=== PATIENT | male | born 1975 ===

== ENCOUNTER 2016-10-23 05:56 | Inpatient (IN) | payer OTHER ==
[2016-10-23] VITALS (11 sets, daily range): BP systolic 102–125; BP diastolic 46–73
[~2016-10-23] VITALS: Ht 172.7 cm; Wt 79.4 kg
[~2016-10-23 05:56] MED LIST: IBUPROFEN800 M1 PO; MELOXICAM7.5 MG PO; ORPHENADRINE C100 MG PO; TRAMADOL-ACETA1 EACH ORAL; ULTRA-LIGHT RO1 EACH MC
[2016-10-23] MEDS ORDERED: NORCO 5-325 TA1 EACH ORAL (07:00)
[2016-10-23 07:29] LABS: BASOPHILS % (AUTO) 1.8 % (0.0-2.0); EOSINOPHILS % (AUTO) 4.3 % (0.0-3.0); LYMPHOCYTES % (AUTO) 44.4 % (20.0-45.0); MEAN CORPUSCULAR HEMOGLOBIN 33.5 PG (27.0-31.0); MEAN CORPUSCULAR HGB CONC 35.3 G/DL (32.0-36.0); MEAN CORPUSCULAR VOLUME 95 FL (80-99); MEAN PLATELET VOLUME 7.1 FL (6.5-10.1); MONOCYTES % (AUTO) 7.7 % (1.0-10.0); NEUTROPHILS % (AUTO) 41.9 % (45.0-75.0); PLATELET COUNT 240 K/UL (150-450); RED BLOOD COUNT 4.35 M/UL (4.70-6.10); WHITE BLOOD COUNT 4.8 K/UL (4.8-10.8)
[2016-10-23 07:35] LABS: PROTHROMBIN TIME 10.3 SEC (9.30-11.50)
[2016-10-23 07:36] LABS: ANION GAP 12 (5-15); CALCIUM 9.1 mg/dL (8.6-10.2); CARBON DIOXIDE 28 mEQ/L (20-30); CHLORIDE 100 mEQ/L (98-107); CREATININE 0.9 mg/dL (0.7-1.2); GLOMERULAR FILTRATION RATE > 60 mL/min (>60); HEMOLYSIS 4; POTASSIUM 3.9 mEQ/L (3.4-4.9); SODIUM 140 mEQ/L (135-145)
[2016-10-23] MEDS ORDERED: Thrombin 5000 units TOPIC ONE (07:43)
[2016-10-23] MEDS ORDERED: Thrombin 5000 units spray kit TOPIC ONE (07:43)
[2016-10-23] MEDS ORDERED: Bupivacaine w/Epi 0.5% 30ml Vial INJ ONE (07:43)
[2016-10-23] MEDS ORDERED: Gelfoam Absorbable 1gm powder pkt TOPIC ONE (07:44)
[2016-10-23] MEDS ORDERED: Bacitracin 50000 Units Vial ONE (07:44)
[2016-10-23] MEDS ORDERED: Neostigmine 1mg/ml 10ml Inj ONE (08:00)
[2016-10-23] MEDS ORDERED: Midazolam 2mg/2ml Inj ONE ×2 (08:00)
[2016-10-23] MEDS ORDERED: Dexamethasone 4mg/ml vial ONE (08:00)
[2016-10-23] MEDS ORDERED: Succinylcholine 20mg/ml 10ml vial ONE (08:00)
[2016-10-23] MEDS ORDERED: Glycopyrrolate 0.2mg/ml 1ml Vial ONE (08:00)
[2016-10-23] MEDS ORDERED: Zemuron 50mg/5ml Inj IV ONE (08:00)
[2016-10-23] MEDS ORDERED: NS Irrig 1000ml ONE (08:00)
[2016-10-23] MEDS ORDERED: Sterile Water Irrig 1000ml IRRIG ONE (08:00)
[2016-10-23] MEDS ORDERED: fentaNYL 250mcg/5ml ONE (08:00)
[2016-10-23] MEDS ORDERED: Ketorolac 30mg Inj ONE (08:00)
[2016-10-23] MEDS ORDERED: Propofol 10mg/ml 100ml btl IV ONE (08:00)
[2016-10-23] MEDS ORDERED: Heparin 5000 units/ml inj ONE (08:32)
[2016-10-23] MEDS ORDERED: LR 1000ml 1,000 ML IVLG SCH (10:02)
--- NOTE | 2016-10-23 10:02 | Anethesia Preoperative Eval ---
Anesthesia Pre-op PMH/ROS General Date of Evaluation: Oct 23, 2016 Time of Evaluation: 07:55 Anesthesiologist: Dio ASA Score: ASA 2 Mallampati Score Class I : Soft palate, uvula, fauces, pillars visible Class II: Soft palate, uvula, fauces visible Class III: Soft palate, base of uvula visible Class IV: Only hard plate visible Mallampati Classification: Class II Surgeon: Ernie Diagnosis: Lumbar radiculopathy Surgical Procedure: Revision of L4-5 L5-6 laminotomy with discectomy and decompression Anesthesia History: none Family History: no anesthesia problems Allergies: Coded Allergies: PENICILLINS (Verified Allergy, Unknown, 06/16/15) Past Medical History Cardiovascular: Denies: CAD, HTN, ME, arrhythmia, other, valve dz Pulmonary: Denies: COPD, FLOWER, asthma, other Gastrointestinal/Genitourinary: Reports: GERD - mild, Denies: CRI, ESRD, other Neurologic/Psychiatric: Reports: other - chronic back pain, Denies: CVA, TIA, dementia, depression/anxiety Endocrine: Denies: DM, hypothyroidism, other, steroids HEENT: Denies: SAMISH (L), SAMISH (R), cataract (L), cataract (R), glaucoma, other Hematology/Immune: Denies: DVT, anemia, bleeding disorder, other Musculoskeletal/Integumentary: Denies: DDD, DJD, OA, RA, edema, other PMH Narrative: as above PSxH Narrative: Lumbar laminotomy with decompression L shoulder Sx Anesthesia Pre-op Phys. Exam Physician Exam Last Vital Signs Date Time Temp Pulse Resp B/P Pulse Ox O2 Delivery O2 Flow Rate FiO2 10/23/16 06:54 97.6 60 18 110/73 100 Room Air Constitutional: NAD Neurologic: CN 2-12 intact Cardiovascular: RRR, no M/R/G Respiratory: CTA Gastrointestinal: S/NT/ND Airway Exam Mallampati Score: Class II MO: limited Neck: fexible ROM: limited Teeth: intact Dentures: no lower, no upper Anesthesia Pre-op A/P Labs Hematology Test 10/23/16 06:30 White Blood Count 4.8 K/UL (4.8-10.8) Red Blood Count 4.35 M/UL (4.70-6.10) L Hemoglobin 14.6 G/DL (14.2-18.0) Hematocrit 41.3 % (42.0-52.0) L Mean Corpuscular Volume 95 FL (80-99) Mean Corpuscular Hemoglobin 33.5 PG (27.0-31.0) H Mean Corpuscular Hemoglobin Concent 35.3 G/DL (32.0-36.0) Red Cell Distribution Width 10.0 % (11.6-14.8) L Platelet Count 240 K/UL (150-450) Mean Platelet Volume 7.1 FL (6.5-10.1) Neutrophils (%) (Auto) 41.9 % (45.0-75.0) L Lymphocytes (%) (Auto) 44.4 % (20.0-45.0) Monocytes (%) (Auto) 7.7 % (1.0-10.0) Eosinophils (%) (Auto) 4.3 % (0.0-3.0) H Basophils (%) (Auto) 1.8 % (0.0-2.0) Coagulation Test 10/23/16 06:30 Prothrombin Time 10.3 SEC (9.30-11.50) Prothromb Time International Ratio 1.0 (0.9-1.1) Activated Partial Thromboplast Time 28 SEC (23-33) Chemistry Test 10/23/16 06:30 Sodium Level 140 mEQ/L (135-145) Potassium Level 3.9 mEQ/L (3.4-4.9) Chloride Level 100 mEQ/L (98-107) Carbon Dioxide Level 28 mEQ/L (20-30) Anion Gap 12 (5-15) Blood Urea Nitrogen 11 mg/dL (7-23) Creatinine 0.9 mg/dL (0.7-1.2) Estimat Glomerular Filtration Rate > 60 mL/min (>60) Glucose Level 98 mg/dL (74-106) Calcium Level 9.1 mg/dL (8.6-10.2) Studies Pre-op Studies: EKG - NSR Risk Assessment & Plan Assessment: ASA 2 Plan: Ga with ETT prone position neuromonitoring. Status Change Before Surgery: No Pre-Antibiotics Drug: Ancef 2gr. Given Within 1 Hr of Incision: Yes Time Given: 08:50 SHARLENE ALFONSO M.D. Oct 23, 2016 10:02
[2016-10-23] MEDS ORDERED: Midazolam 2mg/2ml Inj IVP PRN (10:15)
[2016-10-23] MEDS ORDERED: Ketorolac 30mg Inj IV PRN (10:15)
[2016-10-23] MEDS ORDERED: DiphenhydrAMINE 50mg/ml Inj IVP PRN ×2 (10:15→10:30)
[2016-10-23] MEDS ORDERED: Metoclopramide 10mg/2ml Inj IVP PRN ×2 (10:15→12:30)
[2016-10-23] MEDS ORDERED: Hydromorphone 0.5mg/0.5ml inj IVP PRN (10:15)
[2016-10-23] MEDS ORDERED: Meperidine 25mg/ml Inj IV PRN (10:15)
[2016-10-23] MEDS ORDERED: Bacitracin 50000 Units Vial IRRIG ONE (11:18)
[2016-10-23] MEDS ORDERED: Acetaminophen 500mg (ES) tab ORAL ONE (11:45)
[2016-10-23] MEDS ORDERED: PCA HYDROmorphone 1mg/ml 30 ML IV PRN ×2 (12:00→22:45)
[2016-10-23] MEDS ORDERED: Acetaminophen (Non formulary) 100 ML IV ONE (12:00)
[2016-10-23] MEDS ORDERED: Naloxone 0.4mg/ml Inj IVP PRN (12:00)
[2016-10-23] MEDS ORDERED: Rate Change PCA 1 Each MISC PRN ×2 (12:00→15:00)
--- NOTE | 2016-10-23 12:20 | Pre-Procedure Note/Attestation ---
Pre-Procedure Note/Attestation Complete Prior to Procedure Procedure Narrative: L456 redo laminectomy/discectomy Indications for Procedure Pre-Operative Diagnosis: L45 HNP, L56 stenosis Attestation I attest that I discussed the nature of the procedure; its benefits; risks and complications; and alternatives (and the risks and benefits of such alternatives ), prior to the procedure, with the patient (or the patient's legal outside energy sales representatives). I attest that, if there was a reasonable possibility of needing a blood transfusion, the patient (or the patient's legal outside energy sales representatives) was given the [facility] standardized written summary, pursuant to the Dennys Rachel Blood Safety Act ([place] Health and Safety Code # 1645, as amended). I attest that I re-evaluated the patient just prior to the surgery and that there has been no change in the patient's H&P, except as documented below: TONYA SWANN Oct 23, 2016 12:20
--- NOTE | 2016-10-23 12:22 | Brief Operative Note ---
Immediate Post Operative Note Operative Note Pre-op Diagnosis: L45 HNP, L56 stenosis Procedure: L45 L discectomy, L56 redo laminectomy and decompression/neurolysis Surgeon: binu Director Of Restaurant Operations: ky ARNOLD Anesthesiologist: ivet Anesthesia: general Specimen: none Complications: none Condition: stable Estimated Blood Loss: minimal Drains: none Implant(s) used?: TONYA Pulido Oct 23, 2016 12:22
[2016-10-23] MEDS ORDERED: Milk of Magnesia 30ml Ud ORAL PRN (12:30)
--- NOTE | 2016-10-23 12:37 | Immediate Post-Op Evaluation ---
Immediate Post-Op Evalulation Immediate Post-Op Evalulation Procedure: Revision of L4-5 L5-6 laminotomy with decompression Date of Evaluation: Oct 23, 2016 Time of Evaluation: 12:36 IV Fluids: 1100 Blood Products: none Estimated Blood Loss: 50 Urinary Output: 150 Blood Pressure Systolic: 115 Blood Pressure Diastolic: 56 Pulse Rate: 84 Respiratory Rate: 20 O2 Sat by Pulse Oximetry: 99 Temperature (Fahrenheit): 97.7 Pain Score (1-10): 2 Nausea: No Vomiting: No Complications none Patient Status: reacts, patent, extubated, none Hydration Status: adequate SHARLENE ALFONSO M.D. Oct 23, 2016 12:37
[2016-10-23] MEDS ORDERED: LORazepam 1mg tab ORAL PRN (15:00)
[2016-10-23] MEDS: PCA shift volume MISC SCH ×2 (15:00→23:00)
[2016-10-23] MEDS ORDERED: Acetaminophen (Non formulary) 1,000 MG/100 ML ML IV SCH (17:00)
[2016-10-23] MEDS: ceFAZolin sod 1 GM in D5W 55 ML IV SCH (17:00)
[2016-10-23] MEDS: D5 1/2NS 1,000 ML IV SCH (17:00)
[2016-10-23] MEDS: Pericolace tab ORAL SCH (17:01)
[2016-10-23] MEDS ORDERED: Norco 10mg/325mg tab ORAL PRN (22:30)
[2016-10-23] MEDS ORDERED: HYDROmorphone 1mg/ml Carpuject SUBQ PRN (22:30)
--- NOTE | 2016-10-23 22:57 | Operative Note - Dictated ---
DATE OF OPERATION: 10/23/2016 PREOPERATIVE DIAGNOSES: 1. Lumbar disk herniation L4-L5, left side with left lower extremity radiculopathy. 2. L5-L6 stenosis with persistent radiculopathy. 3. Status post prior lumbar laminectomy and decompression. POSTOPERATIVE DIAGNOSES: 1. Lumbar disk herniation L4-L5, left side with left lower extremity radiculopathy. 2. L5-L6 stenosis with persistent radiculopathy. 3. Status post prior lumbar laminectomy and decompression. SURGEON: Roly Klein M.D. MANAGER PHYSICAL: Toni Fuller ANESTHESIA: General endotracheal anesthesia. ANESTHESIOLOGIST: Herb Wharton M.D. OPERATION PERFORMED: 1. Bilateral extraforaminal disk resection/diskectomy through a Pramod approach L4-L5. 2. Laminectomy redo L4-L5 and superior portion of L6. 3. Neurolysis. 4. Redo decompression with lysis of adhesions at the L5-L6 level. 5. Use of fluoroscopy. 6. Neurodiagnostic monitoring. 7. Need for use of operating microscope for neural decompression due to extensive and marked adhesion. RISK NOTE: The patient was explained in detail the risks and benefits of surgery to include, but not be limited to, those of bleeding, infection, damage to nerves, vessels, tendons, anesthetic risk, allergic reaction, aspiration, and possibly . The patient understood and wished to proceed. INDICATIONS: The patient is a very pleasant gentleman who previously underwent a lumbar decompression due to disk protrusion of his lower back. Postoperatively, the patient had persistence of radiculopathic findings primarily on the left side. Diagnostic selective nerve root block at L4-L5 was performed confirming improvement of the symptoms. MRI confirmed bilateral extraforaminal disk herniation at L4-L5. In addition at L5 and at L6, residual spinal stenosis was noted. The patient does have transitional segments, which for the purposes of this dictation will call the lowest most disks on the MRI as L6-S1. Despite prior surgical decompression, the patient had persistent radiculopathic findings and surgical recommendation was recommended. OPERATIVE PROCEDURE IN DETAIL: The patient was taken to the operative suite. After general endotracheal anesthesia was obtained, Muniz catheter was placed. He was turned prone onto a radiolucent table. All bony prominences were well padded. Under fluoroscopic guidance, the L4-L5 level was visualized. A 5 cm off of midline incision was marked out on the left side consistent with a traditional Pramod approach. The skin was infiltrated with Marcaine with epinephrine. The incision was carried down through the subcutaneous. The dorsal lumbar fascia was incised. Interval between the longissimus and multifidus muscles were delineated and the fascia was incised with Bovie. Blunt dissection was then carried out through the transverse processes of L4-L5. This was confirmed radiographically. At this point, self-retaining retractor was put in place. The interval along the intertransverse ligament was identified. Elevation of the intertransverse ligament of the superior portion of the L5 and inferior portion of L4 transverse processes was achieved. The intertransverse ligament was then peeled off from medial to lateral exposing the dorsal root ganglion and the nerve root. Care was taken to avoid undue manipulation of the dorsal root ganglion and minimal Bovie or bipolar was used in order to not be vascularized or injure the dorsal root ganglion. The nerve root, however, was gently retracted laterally and a disk protrusion was identified. Annulotomy was performed using a scalpel and straight pituitary was used to remove the disk fragments within the L4-L5 level, which had significantly become degenerated from his injury. At this point, an extruded fragment was identified and this was removed in a piecemeal fashion. Multiple passes with the pituitary as well as down-pushing curettes mobilized loose disk fragments, copious intradiscal irrigation was removed. The microscope was then removed. Copious irrigation was performed and please note that prior to removing the microscope, meticulous hemostasis was achieved. Decision was made to close this incision. A #1 Vicryl simple interrupted sutures through the muscle layer was achieved. Fascia was repaired using [id number] #1 Vicryl and subcutaneous closure using 2-0 Vicryl. This area was then packed off. Attention was turned to the midline. The prior incision was identified. Copious application of Marcaine 0.25% with epinephrine was injected into the prior scar. The scar was re-incised. Extensive scarring was noted on immediate inspection on the left side. Identification of the lamina of L4 was required, which then allowed for me to dissect down to the L5 lamina. The residual lamina was identified and with the use of a Bovie, the scar tissue was elevated off of the remnants of the lamina. Multiple imaging was obtained so as to confirm appropriate level at the L5-L6 level. At this point, using a high-speed drill under microscopic magnification, laminotomy of L5 and superior portion of L6 was achieved. The facet joints at L5-L6 was markedly inflamed with extensive amount of synovitis. The cephalad-most nature of the laminotomy at L5 was explored and using a curved curette, the normal tissue was encountered. The dura was gently retracted medially, which allowed for us to expose the lateral recess from L5 to superior portion of L6. L6 superior laminotomy was achieved. At this point, I was then able to gently retract the nerve root medially. Extensive epidural scar formation was encountered and a very significant neurolysis was achieved using meticulous microtechnique and very extensive laminotomy was achieved. At this time, the nerve roots was gently retracted medially. The neural foramen at L5-L6 was probed. The epidural neovascularization was also debulked and which allowed for additional decompression as the neovascularization was resulting in a mass effect. At this point, probing of the neural foramen demonstrated excellent access to the exiting nerve root. The traversing nerve root was also decompressed along the leading edge of the lamina of L6. Once I was satisfied with the decompression, meticulous hemostasis was achieved. Copious irrigation was performed. The fascia was repaired using #1 Vicryl and subcutaneous closure using 2-0 Vicryl. Dermabond was then applied to both incisions and a sterile dressing was applied. The patient was then turned onto his back, awakened, and transferred to recovery room in stable condition. Roly Klein M.D. DR: VESTA JOB#: [id number] CC:
[2016-10-23] MEDS ORDERED: Tamsulosin 0.4mg cap ORAL SCH (23:00)
[2016-10-24] MEDS: ceFAZolin sod 1 GM in D5W 55 ML IV SCH ×2 (00:03→07:56)
[2016-10-24 00:09] VITALS: BP 115/67
[2016-10-24] MEDS ORDERED: PCA HYDROmorphone 1mg/ml 30 ML IV PRN ×2 (00:15→12:00)
[2016-10-24] MEDS: D5 1/2NS 1,000 ML IV SCH ×2 (02:00→12:00)
[2016-10-24 04:00] VITALS: BP 114/53
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
[2016-10-24 07:22] LABS: BASOPHILS % (AUTO) 0.3 % (0.0-2.0); EOSINOPHILS % (AUTO) 0.1 % (0.0-3.0); LYMPHOCYTES % (AUTO) 7.8 % (20.0-45.0); MEAN CORPUSCULAR HEMOGLOBIN 33.4 PG (27.0-31.0); MEAN CORPUSCULAR HGB CONC 35.4 G/DL (32.0-36.0); MEAN CORPUSCULAR VOLUME 94 FL (80-99); MEAN PLATELET VOLUME 7.3 FL (6.5-10.1); MONOCYTES % (AUTO) 8.7 % (1.0-10.0); NEUTROPHILS % (AUTO) 83.1 % (45.0-75.0); PLATELET COUNT 222 K/UL (150-450); RED BLOOD COUNT 3.83 M/UL (4.70-6.10); RED CELL DISTRIBUTION WIDTH 10.1 % (11.6-14.8); WHITE BLOOD COUNT 14.3 K/UL (4.8-10.8)
[2016-10-24 08:00] VITALS: BP_SYST 106; BP_SYST 134; BP_DIAS 61; BP_DIAS 86
[2016-10-24] MEDS ORDERED: Zemuron 50mg/5ml Inj IV ONE (08:00)
[2016-10-24] MEDS ORDERED: Dexamethasone 4mg/ml vial ONE (08:00)
[2016-10-24] MEDS ORDERED: Midazolam 2mg/2ml Inj ONE ×2 (08:00)
[2016-10-24] MEDS ORDERED: fentaNYL 250mcg/5ml ONE (08:00)
[2016-10-24] MEDS ORDERED: Propofol 10mg/ml 100ml btl IV ONE (08:00)
[2016-10-24] MEDS ORDERED: LR 1000ml ONE (08:00)
[2016-10-24] MEDS ORDERED: Ketorolac 30mg Inj ONE ×2 (08:00)
[2016-10-24] MEDS: Pericolace tab ORAL SCH (08:43)
--- NOTE | 2016-10-24 10:22 | Diagnostic Imaging Report ---
Indication: PAIN, intraoperative Technique: Digital intraoperative images Comparison: None Findings: Digital intraoperative images demonstrate initially a surgical tool posterior to the L4 vertebral body. Subsequent images demonstrate surgical tool posterior to the L4-5 disc. Impression: Intraoperative images for localization, as described
[2016-10-24 12:07] VITALS: BP 107/55
--- NOTE | 2016-10-24 13:01 | Orthopedic Spine Progress Note ---
Ortho Spine - Progress Note Subjective Symptoms: c/o post-op back pain, improved - as compared to pre-op Objective Vital Signs: Last 24 Hour Vital Signs Date Time Temp Pulse Resp B/P Pulse Ox O2 Delivery O2 Flow Rate FiO2 10/24/16 12:07 97.7 64 20 107/55 95 Room Air 10/24/16 09:00 96 Nasal Cannula 2.0 28 10/24/16 09:00 Nasal Cannula 2.0 28 10/24/16 08:24 98.2 10/24/16 08:00 97.5 68 17 134/86 100 Room Air 10/24/16 08:00 98.2 70 20 106/61 97 Room Air 10/24/16 04:00 98.3 72 21 114/53 93 Nasal Cannula 2.0 10/24/16 04:00 18 10/24/16 00:09 97.3 84 21 115/67 95 Nasal Cannula 2.0 10/24/16 00:00 18 10/23/16 20:00 98.4 92 20 125/62 93 Nasal Cannula 2.0 10/23/16 20:00 18 10/23/16 17:02 Nasal Cannula 2.0 28 10/23/16 17:02 97 Nasal Cannula 2.0 28 10/23/16 16:46 97.5 84 18 102/60 97 Nasal Cannula 2.0 10/23/16 16:00 18 10/23/16 15:00 20 10/23/16 14:50 97.7 81 20 113/58 97 Nasal Cannula 2.0 10/23/16 14:30 20 10/23/16 14:00 20 10/23/16 13:57 98.0 10/23/16 13:40 20 10/23/16 13:30 98.0 77 18 109/56 100 Nasal Cannula 3.0 10/23/16 13:25 20 10/23/16 13:15 80 18 110/52 100 Nasal Cannula 3.0 10/23/16 13:10 20 I&O: Intake and Output 10/23/16 10/24/16 19:00 07:00 Intake Total 1405 ml 1480 ml Output Total 400 ml 1950 ml Balance 1005 ml -470 ml Intake Oral 525 ml IV Total 1405 ml 955 ml Output Urine Total 350 ml 1950 ml Estimated Blood Loss 50 ml # Voids 1 Wound: clean, dry, intact Drains: none Neuro Status: normal Assessment Procedure Performed: L45 L discectomy, L56 redo laminectomy and decompression/neurolysis Plan Plan: PT, pain management, discharge to home TONYA SWANN Oct 24, 2016 13:01
[2016-10-24] MEDS ORDERED: NORCO 10-325 T1 EACH ORAL ×2 (14:04)
[2016-10-24] MEDS ORDERED: Tubing IV Secondary IV ONE (14:59)
[2016-10-24] MEDS ORDERED: D5 1/2NS 1000ml IV ONE (14:59)
--- NOTE | 2016-10-24 20:47 | Progress Note ---
ACUTE PAIN MANAGEMENT PHYSICIAN PROGRESS NOTE MEDICATIONS: Medication administration record reviewed. Medications include Flomax, Bre-Colace, Phenergan, Protonix, Zofran, Narcan, milk of magnesia, Dilaudid, Benadryl, Catapres, Cepacol, Mylanta, Johnson, and Tylenol. LABORATORY STUDIES: Laboratory studies from today, 10/24/2016 shows elevated white count 14, post-reactive surgery, hematocrit 36, and platelets 222,000. OBJECTIVE: VITAL SIGNS: Afebrile, pulse 64, respirations 20, blood pressure 107/55, and pulse oximetry 95% on room air. I spent over 60 minutes in consultation today. I saw the patient at the bedside with , who interpreted Nigerien. I discussed the case with the nurse RN, Leona along with the surgeon, Dr. Klein. The patient has been ambulating well. We stopped the ORACLE APPLICATIONS ANALYST unit early this morning and the patient has been tolerating his pain levels on the oral analgesics. Dr. Klein evaluated the patient and was pleased with the neurological outcome after surgery. The patient's left lower extremity pain has resolved. Incisional pain is as - expected. The patient's nausea symptoms improved. I have provided a prescription for Johnson for outpatient usage. The will deliver the prescription to the patient's patent prosecution attorney to expedite medication dispensing. The patient denies any shortness of breath or chest pain. Lumbar spine wound dressing is clean and dry. The patient will follow up with Dr. Klein in the outpatient clinic. I agree with discharge trial home today. Jadiel Hummel M.D. DR: MOISÉS JOB#: [id number] CC:
[2016-10-25 07:52] VITALS: BP 114/53
--- NOTE | 2016-10-25 07:52 | 48 Hour Post Anesthesia Eval ---
Post Anesthesia Evaluation Procedure: Revision of L4-5 L5-6 laminotomy with decompression Date of Evaluation: Oct 24, 2016 Time of Evaluation: 07:30 Blood Pressure Systolic: 114 0: 53 Pulse Rate: 72 Respiratory Rate: 18 Temperature (Fahrenheit): 98.3 O2 Sat by Pulse Oximetry: 93 Airway: patent Nausea: No Vomiting: No Pain Intensity: 2 Hydration Status: adequate Cardiopulmonary Status: at baseline Mental Status/LOC: patient returned to baseline Post-Anesthesia Complications: 0 Follow-up care needed: N/A - further care as per primary team MATTHIAS MEEKS M.D. Oct 25, 2016 07:52
[2016-10-25] MEDS ORDERED: Norco 5mg/325mg tab ORAL PRN (12:00)
[2016-10-25] MEDS ORDERED: HYDROmorphone 1mg/ml Carpuject SUBQ PRN (12:00)
[2016-10-25] MEDS ORDERED: Naloxone 0.4mg/ml Inj IVP PRN (12:00)
[2016-10-25] MEDS ORDERED: Norco 7.5mg/325mg tab ORAL PRN ×2 (12:00)
--- NOTE | 2016-10-25 21:09 | Discharge Summary ---
Discharge Summary Hospital Course Date of Admission Oct 23, 2016 at 05:56 Date of Discharge Oct 24, 2016 at 15:00 Admitting Diagnosis HPI Jluis Angela is a 41 year old male who was admitted on Oct 23, 2016 at 05:56 for Status Post L5 & L6 S1 Laminectomy,Microdiscectomy Hospital Course [id number] Discharge Discharge Disposition Patient was discharged to Home (01) Discharge Diagnoses: Dania Cueto NP Oct 25, 2016 21:09
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
== END 2016-10-24 15:00 | disposition home or self-care (01) | DRG 520 ==
LOC: SDSOVERFLO 05:56 → 3E 14:19
PROC: 0ST20ZZ Resection of Lumbar Vertebral Disc, Open Approach (ICD-10-PCS; principal; 2016-10-23 08:30)
PROC: 00NY0ZZ Release Lumbar Spinal Cord, Open Approach (ICD-10-PCS; principal; 2016-10-23 08:30)
DX: M51.16 Intervertebral disc disorders with radiculopathy, lumbar region (principal); K21.9 Gastro-esophageal reflux disease without esophagitis; M48.06 Spinal stenosis, lumbar region; Z88.0 Allergy status to penicillin; R11.0 Nausea
CPT/HCPCS: 36415; 72020; 76001; 80048; 85025; 85610; 85730; 86850; 86900; 86901; 87081; 94003; 94150; 94760; C9399; J2250; J2405; J2710